=== PATIENT | female | born 1990 | race Caucasian/White ===

== ENCOUNTER 2016-10-30 15:59 | Emergency (ER) | payer OTHER ==
[~2016-10-30] VITALS: Ht 162.6 cm; Wt 120.7 kg
[2016-10-30 20:32] VITALS: BP 122/67
== END 2016-10-30 20:32 | disposition home or self-care (01) ==
LOC: ED 15:59
DX: J02.0 Streptococcal pharyngitis (principal)
CPT/HCPCS: J0561; J8540

== ENCOUNTER 2017-02-13 23:59 | Emergency (ER) | payer OTHER ==
[2017-02-14 04:16] VITALS: BP 136/78
== END 2017-02-14 04:16 | disposition home or self-care (01) ==
LOC: ED 23:59
DX: J02.9 Acute pharyngitis, unspecified (principal); J45.909 Unspecified asthma, uncomplicated; E11.9 Type 2 diabetes mellitus without complications; Z98.51 Tubal ligation status
CPT/HCPCS: J1100; J1885

== ENCOUNTER 2017-02-15 09:10 | Emergency (ER) | payer OTHER ==
[2017-02-15 13:39] VITALS: BP 130/60
== END 2017-02-15 13:39 | disposition home or self-care (01) ==
LOC: ED 09:10
DX: J03.90 Acute tonsillitis, unspecified (principal); J45.909 Unspecified asthma, uncomplicated; E78.00 Pure hypercholesterolemia, unspecified; E66.01 Morbid (severe) obesity due to excess calories
CPT/HCPCS: J0696; J1100

== ENCOUNTER 2017-03-18 23:25 | Emergency (ER) | payer OTHER ==
[2017-03-19 00:11] VITALS: BP 145/90
== END 2017-03-19 00:11 | disposition home or self-care (01) ==
LOC: ED 23:25
DX: M54.5 Low back pain (principal); M79.604 Pain in right leg; M79.605 Pain in left leg

== ENCOUNTER 2017-03-23 21:50 | Emergency (ER) | payer OTHER ==
[2017-03-23 23:49] VITALS: BP 130/71
== END 2017-03-23 23:50 | disposition home or self-care (01) ==
LOC: ED 21:50
DX: M54.5 Low back pain (principal); E11.9 Type 2 diabetes mellitus without complications; J45.909 Unspecified asthma, uncomplicated; E78.00 Pure hypercholesterolemia, unspecified; Z98.51 Tubal ligation status; Z79.84 Long term (current) use of oral hypoglycemic drugs; W10.8XXA Fall (on) (from) other stairs and steps, initial encounter; Y93.89 Activity, other specified; Y99.8 Other external cause status; Y92.89 Other specified places as the place of occurrence of the external cause
CPT/HCPCS: J1100; J1885

== ENCOUNTER 2017-04-20 22:27 | Emergency (ER) | payer OTHER ==
[2017-04-20 23:23] VITALS: BP 116/75
== END 2017-04-21 01:10 | disposition home or self-care (01) ==
LOC: ED 22:27
DX: L03.221 Cellulitis of neck (principal); E11.9 Type 2 diabetes mellitus without complications; E78.5 Hyperlipidemia, unspecified
CPT/HCPCS: J0696

== ENCOUNTER 2017-05-01 11:03 | Emergency (ER) | payer OTHER ==
[~2017-05-01] VITALS: Ht 162.6 cm; Wt 115.8 kg
[2017-05-01 13:38] VITALS: BP 118/64
== END 2017-05-01 13:20 | disposition home or self-care (01) ==
LOC: ED 11:03
DX: S93.401A Sprain of unspecified ligament of right ankle, initial encounter (principal); E11.9 Type 2 diabetes mellitus without complications; E78.00 Pure hypercholesterolemia, unspecified; E66.01 Morbid (severe) obesity due to excess calories; J45.909 Unspecified asthma, uncomplicated; X50.1XXA Overexertion from prolonged static or awkward postures, initial encounter; Y93.89 Activity, other specified; Y99.8 Other external cause status; Y92.89 Other specified places as the place of occurrence of the external cause
CPT/HCPCS: Q0092

== ENCOUNTER 2017-09-20 19:40 | Emergency (ER) | payer OTHER ==
[~2017-09-20] VITALS: Ht 162.6 cm; Wt 118.4 kg
[2017-09-20 19:58] VITALS: Ht 162.6 cm; Wt 118.4 kg
[2017-09-20 23:45] VITALS: BP 118/84
== END 2017-09-20 23:45 | disposition home or self-care (01) ==
LOC: ED 19:40
DX: S63.616A Unspecified sprain of right little finger, initial encounter (principal); S63.614A Unspecified sprain of right ring finger, initial encounter; E11.9 Type 2 diabetes mellitus without complications; E78.00 Pure hypercholesterolemia, unspecified; Z98.51 Tubal ligation status; W22.8XXA Striking against or struck by other objects, initial encounter; Y93.89 Activity, other specified; Y99.8 Other external cause status; Y92.89 Other specified places as the place of occurrence of the external cause

== ENCOUNTER 2017-11-02 05:59 | Emergency (ER) | payer OTHER ==
[~2017-11-02] VITALS: Ht 162.6 cm; Wt 117.2 kg
[2017-11-02 06:07] VITALS: Ht 162.6 cm; Wt 117.2 kg
[2017-11-02 08:22] VITALS: BP 114/77
== END 2017-11-02 08:23 | disposition home or self-care (01) ==
LOC: ED 05:59
DX: S16.1XXA Strain of muscle, fascia and tendon at neck level, initial encounter (principal); S39.012A Strain of muscle, fascia and tendon of lower back, initial encounter; J45.909 Unspecified asthma, uncomplicated; E78.00 Pure hypercholesterolemia, unspecified; E11.9 Type 2 diabetes mellitus without complications; V43.62XA Car passenger injured in collision with other type car in traffic accident, initial encounter; Y93.I9 Activity, other involving external motion; Y99.8 Other external cause status; Y92.89 Other specified places as the place of occurrence of the external cause
CPT/HCPCS: J1885

== ENCOUNTER 2018-01-27 23:14 | Emergency (ER) | payer OTHER ==
[~2018-01-27] VITALS: Ht 162.6 cm; Wt 114.8 kg
[2018-01-27 23:22] VITALS: Ht 162.6 cm; Wt 114.8 kg
[2018-01-28 02:22] LABS: BASOPHIL % 0.8 % (0-2); PLATELET COUNT 311 x10^3mcL (130-400); RED CELL DISTRIBUTION WIDTH 13.2 % (11.5-14.5)
[2018-01-28 02:25] LABS: CALCIUM 8.9 mg/dL (8.5-10.1); CARBON DIOXIDE 27.1 mmol/L (21-32); CHLORIDE SERUM 103 mmol/L (98-107); CREATININE SERUM 0.7 mg/dL (0.6-1.0); GFR1 > 60 mL/min; GLUCOSE SERUM 329 mg/dL (74-106); POTASSIUM SERUM 3.5 mmol/L (3.5-5.1); SODIUM SERUM 139 mmol/L (136-145)
[2018-01-28 02:31] LABS: ALBUMIN 3.6 g/dL (3.4-5.0); ALKALINE PHOSPHATASE 101 U/L (46-116); ALT/SGPT 89 U/L (14-59); AST/SGOT 34 U/L (15-37); BILIRUBIN TOTAL 0.2 mg/dL (0.20-1.00); CHOLESTEROL 167 mg/dL (<200); TOTAL PROTEIN, SERUM 7.6 g/dL (6.4-8.2)
[2018-01-28 03:17] VITALS: BP 122/74
== END 2018-01-28 03:17 | disposition home or self-care (01) ==
LOC: ED 23:14
PROVIDERS: Specialist
DX: R55 Syncope and collapse (principal); R19.7 Diarrhea, unspecified; J45.909 Unspecified asthma, uncomplicated; E78.00 Pure hypercholesterolemia, unspecified; E11.9 Type 2 diabetes mellitus without complications; R15.9 Full incontinence of feces; Z98.51 Tubal ligation status
CPT/HCPCS: 36415; 83880; G0480; Q0092

== ENCOUNTER 2018-07-10 20:44 | Emergency (ER) | payer OTHER ==
[~2018-07-10] VITALS: Ht 152.4 cm; Wt 112.0 kg
[2018-07-10 20:52] VITALS: Ht 152.4 cm; Wt 112.0 kg
[2018-07-11 00:49] VITALS: BP 141/88
== END 2018-07-11 00:49 | disposition home or self-care (01) ==
LOC: ED 20:44
DX: S39.012A Strain of muscle, fascia and tendon of lower back, initial encounter (principal); E11.9 Type 2 diabetes mellitus without complications; E78.00 Pure hypercholesterolemia, unspecified; Z98.51 Tubal ligation status; E66.01 Morbid (severe) obesity due to excess calories; X58.XXXA Exposure to other specified factors, initial encounter; Y93.89 Activity, other specified; Y92.89 Other specified places as the place of occurrence of the external cause; Y99.8 Other external cause status
CPT/HCPCS: 82962; J1885; J2765